=== PATIENT | female | born 1970 | race Caucasian/White ===

== ENCOUNTER → 2018-09-27 | Outpatient (CLI) | payer BC ==
--- NOTE | 2018-09-28 07:05 | US ---
EXAMINATION TYPE: US thyroid st tissue head/neck DATE OF EXAM: 09/27/2018 COMPARISON: NONE CLINICAL HISTORY: R22.1 Neck mass. mid neck fullness GLAND SIZE: Right Lobe: 4.5 x 1.8 x 2.0 cm Overall Parenchyma: homogenous Left Lobe: 4.9 x 1.7 x 2.2 cm Overall Parenchyma: homogeneous Isthmus Thickness: 0.8 cm NODULES RIGHT: # of nodules measured on right: 1 1. 0.8 X 0.5 x 0.5 cm mixed nodule at the mid pole with margins; . This nodule is wider than tall and shows no intranodular vascularity. Prior size: no prior LEFT: # of nodules measured on left: 1 1. 0.5 X 0.5 x 0.5 cm mixed nodule at the mid pole with well-defined margins; . This nodule is wid er than tall and shows intranodular vascularity. Prior size: no prior ISTHMUS: # of nodules measured in the isthmus: 1 1. 1.2 X 1.1 x 0.5 cm solid nodule at the mid pole with well-defined margins; . This nodule is wide r than tall and shows intranodular vascularity. Prior size: no prior Bilateral neck scanned, no evidence of lymphadenopathy. IMPRESSION: Nonspecific nodularity. The need to biopsy should be made on a clinical basis.
== END | disposition home or self-care (01) ==
LOC: RADUSWWP 16:42
PROVIDERS: ATTEND Family Medicine
DX: E04.2 Nontoxic multinodular goiter (principal)
CPT/HCPCS: 76536

== ENCOUNTER → 2018-10-25 | Outpatient (CLI) | payer BC ==
--- NOTE | 2018-10-25 09:21 | US ---
EXAMINATION TYPE: US liver DATE OF EXAM: 10/25/2018 COMPARISON: NONE CLINICAL HISTORY: R74.8 ABN LEVELS SERUM ENZYMES; takes medication for diabetes, HTN and diuresis EXAM MEASUREMENTS: Liver Length: 21.4 cm Gallbladder Wall: 0.2 cm CBD: 0.3 cm Right Kidney: 10.5 x x7.2 x 4.7 cm US exam is technically limited due to large body habitus. Pancreas: limitedly seen due to overlying bowel gas Liver: There is increased echogenicity of the hepatic parenchyma with diminished visualization of th e portal triads most commonly relating to hepatic steatosis and limiting evaluation for underlying he patic masses. Gallbladder: wnl Evidence for sonographic Stone's sign: no CBD: wnl Right Kidney: No hydronephrosis or masses seen IMPRESSION: Technically limited exam secondary to patient body habitus. 1. Sonographic findings most commonly related to hepatic steatosis, appearing moderate to severe. Cor relate with liver function test results. 2. Near-complete nonvisualization of the pancreas secondary to overlying bowel gas and patient body h abitus. 3. No sonographic evidence of cholelithiasis nor acute cholecystitis.
--- NOTE | 2018-10-29 08:33 | MM ---
Reason for exam: screening (asymptomatic). Last mammogram was performed 4 years and 1 month ago. History: Patient had first child at age 36. Family history of breast cancer in mother at age 68. Physical Findings: A clinical breast exam by your physician is recommended on an annual basis and results should be correlated with mammographic findings. MG 3D Screening Mammo W/Cad Bilateral CC and MLO view(s) were taken. Prior study comparison: September 12, 2014, mammogram. There are scattered fibroglandular densities. No significant changes when compared with prior studies. ASSESSMENT: Benign, BI-RAD 2 RECOMMENDATION: Routine screening mammogram of both breasts in 1 year.
== END | disposition home or self-care (01) ==
LOC: RADMAMWWP 06:54
PROVIDERS: ATTEND Family Medicine
DX: Z12.31 Encounter for screening mammogram for malignant neoplasm of breast (principal); R74.8 Abnormal levels of other serum enzymes; Z80.3 Family history of malignant neoplasm of breast
CPT/HCPCS: 76705; 77063; 77067

== ENCOUNTER 2019-02-27 15:57 | Observation (INO) | payer BC ==
[2019-02-27] MEDS ORDERED: VANCOMYCIN IV PER PHARMACY 1 EACH MISC MISCELLANE PRN (17:11)
[2019-02-27] MEDS ORDERED: SODIUM CHLORIDE 0.9% 1,000 ML IV STA (17:11)
--- NOTE | 2019-02-27 17:14 | ED ---
Extremity Problem HPI - General Chief complaint: Extremity Problem,Nontraumatic Stated complaint: bilat leg infection Time Seen by Provider: 02/27/19 16:14 Source: patient, RN notes reviewed, old records reviewed Mode of arrival: ambulatory Limitations: no limitations - History of Present Illness Initial comments: This is a 48-year-old female the ER today. She presents today with significant lower extremity edema bilateral lower extremity edema swelling and redness. I'll pain in both legs. Patient does her from diabetes. States he feels well for about 6 years for swelling goes the redness is been twice with recurrent bouts of infection. Patient was seen an outpatient facility yesterday was given ultrasound of both legs with no DVTs. Patient states his symptoms have not changed since, she states she's been placed on Bactrim with no help. MD Complaint: extremity pain, extremity swelling, other (Bilateral lower ex tremity edema 3+) -: days(s) Location: bilateral lower extremity History of Same: No Radiation: none Severity scale (1-10): 3 Quality: aching Consistency: constant Improves with: nothing Worsens with: weight bearing, walking - Related Data Home Medications Medication Instructions Recorded Confirmed Aspirin [Aspirin EC] 500 mg PO DAILY 02/27/19 02/27/19 Atorvastatin [Lipitor] 20 mg PO DAILY 02/27/19 02/27/19 Ergocalciferol [Vitamin D2] 50,000 unit PO GRIDER 02/27/19 02/27/19 Liraglutide [Victoza 2-Tonny] 1.8 mg SQ DAILY 02/27/19 02/27/19 Lisinopril-Hctz 10-12.5 mg 1 tab PO DAILY 02/27/19 02/27/19 [Zestoretic 10-12.5] Potassium 99 mg PO DAILY 02/27/19 02/27/19 Sulfamethox-Tmp 800-160Mg [Bactrim 1 tab PO BID 02/27/19 02/27/19 DS 800-160 mg] Allergies Allergy/AdvReac Type Severity Reaction Status Date / Time metformin AdvReac Nausea & Verified 02/27/19 16:55 Vomiting Review of Systems ROS Statement: Those systems with pertinent positive or pertinent negative responses have been documented in the HPI. ROS Other: All systems not noted in ROS Statement are negative. Past Medical History Additional Past Medical History / Comment(s): cellulitis History of Any Multi-Drug Resistant Organisms: None Reported Past Surgical History: No Surgical Hx Reported Additional Past Surgical History / Comment(s): Cyst off tailbone in 1991 Past Anesthesia/Blood Transfusion Reactions: No Reported Reaction Past Psychological History: No Psychological Hx Reported Smoking Status: Never smoker Past Alcohol Use History: None Reported Past Drug Use History: None Reported - Past Family History Father Family Medical History: Coronary Artery Disease (CAD), Diabetes Mellitus Additional Family Medical History / Comment(s): Several strokes, bypass surgery, and heart attack Mother Family Medical History: Diabetes Mellitus General Exam Limitations: no limitations General appearance: alert, in no apparent distress Head exam: Present: atraumatic, normocephalic, normal inspection Eye exam: Present: normal appearance, EOMI. Absent: scleral icterus, conjunc tival injection, periorbital swelling ENT exam: Present: normal exam, mucous membranes moist Neck exam: Present: normal inspection. Absent: tenderness, meningismus, lymphadenopathy Respiratory exam: Present: normal lung sounds bilaterally. Absent: respiratory distress, wheezes, rales, rhonchi, stridor Cardiovascular Exam: Present: regular rate, normal rhythm, normal heart sounds. Absent: systolic murmur, diastolic murmur, rubs, gallop, clicks GI/Abdominal exam: Present: soft, normal bowel sounds. Absent: distended, tenderness, guarding, rebound, rigid Extremities exam: Present: normal inspection, full ROM, normal capillary refill, other (Bilateral lower extremity edema, erythema from top of feet above-knee). Absent: tenderness, pedal edema, joint swelling, calf tenderness Back exam: Present: normal inspection Neurological exam: Present: alert, oriented X3, CN II-XII intact Psychiatric exam: Present: normal affect, normal mood Skin exam: Present: warm, dry, intact, normal color, erythema (Bilateral lower Shorty). Absent: rash Course Vital Signs 02/27/19 16:08 Temperature 97.7 F Pulse Rate 93 Respiratory 20 Rate Blood Pressure 145/75 O2 Sat by Pulse 97 Oximetry - Reevaluation(s) Reevaluation #1: 02/27/19 17:14 medical record is reviewed - Consultations Consultation #1: spoke w Dr Fraga for admission he is agreeable Medical Decision Making - Medical Decision Making 48 female the ER for evaluation bilateral lower extremity saline. Will be admitted for treatment of cellulitis, IV antibiotics - Lab Data Result diagrams: 02/27/19 17:37 02/27/19 17:37 Lab Results 02/27/19 02/27/19 02/27/19 Range/Units 17:37 17:37 17:37 WBC 9.0 (3.8-10.6) k/uL RBC 4.07 (3.80-5.40) m/uL Hgb 10.9 L (11.4-16.0) gm/dL Hct 35.9 (34.0-46.0) % MCV 88.3 (80.0-100.0) fL MCH 26.7 (25.0-35.0) pg MCHC 30.3 L (31.0-37.0) g/dL RDW 16.2 H (11.5-15.5) % Plt Count 279 (150-450) k/uL Neutrophils % 72 % Lymphocytes % 16 % Monocytes % 6 % Eosinophils % 3 % Basophils % 1 % Neutrophils # 6.4 (1.3-7.7) k/uL Lymphocytes # 1.4 (1.0-4.8) k/uL Monocytes # 0.5 (0-1.0) k/uL Eosinophils # 0.2 (0-0.7) k/uL Basophils # 0.1 (0-0.2) k/uL Hypochromasia Slight Anisocytosis Slight Sodium 137 (137-145) mmol/L Potassium 4.1 (3.5-5.1) mmol/L Chloride 99 (98-107) mmol/L Carbon Dioxide 32 H (22-30) mmol/L Anion Gap 6 mmol/L BUN 9 (7-17) mg/dL Creatinine 0.83 (0.52-1.04) mg/dL Est GFR (CKD-EPI)AfAm >90 (>60 ml/min/1.73 sqM) Est GFR (CKD-EPI)NonAf 84 (>60 ml/min/1.73 sqM) Glucose 146 H (74-99) mg/dL Calcium 8.9 (8.4-10.2) mg/dL Phosphorus 3.9 (2.5-4.5) mg/dL Magnesium 1.8 (1.6-2.3) mg/dL Total Bilirubin 0.2 (0.2-1.3) mg/dL AST 33 (14-36) U/L ALT 42 (9-52) U/L Alkaline Phosphatase 88 (38-126) U/L Troponin I (0.000-0.034) ng/mL NT-Pro-B Natriuret Pep 144 pg/mL Total Protein 6.1 L (6.3-8.2) g/dL Albumin 3.4 L (3.5-5.0) g/dL 02/27/19 Range/Units 17:37 WBC (3.8-10.6) k/uL RBC (3.80-5.40) m/uL Hgb (11.4-16.0) gm/dL Hct (34.0-46.0) % MCV (80.0-100.0) fL MCH (25.0-35.0) pg MCHC (31.0-37.0) g/dL RDW (11.5-15.5) % Plt Count (150-450) k/uL Neutrophils % % Lymphocytes % % Monocytes % % Eosinophils % % Basophils % % Neutrophils # (1.3-7.7) k/uL Lymphocytes # (1.0-4.8) k/uL Monocytes # (0-1.0) k/uL Eosinophils # (0-0.7) k/uL Basophils # (0-0.2) k/uL Hypochromasia Anisocytosis Sodium (137-145) mmol/L Potassium (3.5-5.1) mmol/L Chloride (98-107) mmol/L Carbon Dioxide (22-30) mmol/L Anion Gap mmol/L BUN (7-17) mg/dL Creatinine (0.52-1.04) mg/dL Est GFR (CKD-EPI)AfAm (>60 ml/min/1.73 sqM) Est GFR (CKD-EPI)NonAf (>60 ml/min/1.73 sqM) Glucose (74-99) mg/dL Calcium (8.4-10.2) mg/dL Phosphorus (2.5-4.5) mg/dL Magnesium (1.6-2.3) mg/dL Total Bilirubin (0.2-1.3) mg/dL AST (14-36) U/L ALT (9-52) U/L Alkaline Phosphatase (38-126) U/L Troponin I <0.012 (0.000-0.034) ng/mL NT-Pro-B Natriuret Pep pg/mL Total Protein (6.3-8.2) g/dL Albumin (3.5-5.0) g/dL Disposition Clinical Impression: Bilateral lower leg cellulitis Disposition: ADMITTED IP TO THIS HOSP Condition: Good Is patient prescribed a controlled substance at d/c from ED?: No Referrals: Israel Arzate MD [Primary Care Provider] - 1-2 days
[2019-02-27] MEDS ORDERED: VANCOMYCIN 2,500 MG in SODIUM CHLORIDE 0.9% 500 ML 500 ML IVPB STA (17:16)
[2019-02-27 17:57] LABS: Anisocytosis Slight; Basophils # (A) 0.1 k/uL (0-0.2); Basophils % (A) 1 %; Eosinophils # (A) 0.2 k/uL (0-0.7); Eosinophils % (A) 3 %; HCT 35.9 % (34.0-46.0); HGB 10.9 gm/dL (11.4-16.0); Hypochromasia Slight; Lymphocytes # (A) 1.4 k/uL (1.0-4.8); Lymphocytes % (A) 16 %; MCH 26.7 pg (25.0-35.0); MCHC 30.3 g/dL (31.0-37.0); MCV 88.3 fL (80.0-100.0); Mean Platelet Volume 7.1; Monocytes # (A) 0.5 k/uL (0-1.0); Monocytes % (A) 6 %; Neutrophils # (A) 6.4 k/uL (1.3-7.7); Neutrophils % (A) 72 %; Platelet Count 279 k/uL (150-450); RBC 4.07 m/uL (3.80-5.40); RDW 16.2 % (11.5-15.5)
[2019-02-27 18:00] LABS: ALT 42 U/L (9-52); AST 33 U/L (14-36); African American GFR (CKD) >90 (>60 ml/min/1.73 sqM); Albumin 3.4 g/dL (3.5-5.0); Alkaline Phosphatase 88 U/L (38-126); Anion Gap 6 mmol/L; Blood Urea Nitrogen 9 mg/dL (7-17); Calcium 8.9 mg/dL (8.4-10.2); Carbon Dioxide 32 mmol/L (22-30); Chloride 99 mmol/L (98-107); Glucose 146 mg/dL (74-99); Magnesium 1.8 mg/dL (1.6-2.3); Phosphorus 3.9 mg/dL (2.5-4.5); Potassium 4.1 mmol/L (3.5-5.1); Sodium 137 mmol/L (137-145); Total Bilirubin 0.2 mg/dL (0.2-1.3); Total Protein 6.1 g/dL (6.3-8.2)
[2019-02-27 23:11] VITALS: BMI 67.8
[2019-02-27] MEDS: ACETAMINOPHEN TAB 500 MG TAB PO PRN (23:50)
[2019-02-28 07:12] LABS: Glucose,Whole Blood 133 mg/dL (75-99)
[2019-02-28] MEDS: LISINOPRIL-HCTZ 10-12.5 MG 1 EACH TAB PO SCH (07:41)
[2019-02-28] MEDS: ATORVASTATIN 20 MG TAB PO SCH (07:41)
[2019-02-28] MEDS: INSULIN ASPART (NovoLOG) 100 UNIT/ML VIAL SQ SCH ×4 (07:42→21:13)
[2019-02-28] MEDS: ACETAMINOPHEN TAB 500 MG TAB PO PRN ×2 (07:48→17:50)
[2019-02-28] MEDS ORDERED: VANCOMYCIN 2,250 MG in SODIUM CHLORIDE 0.9% 500 ML 500 ML IVPB SCH (08:00)
[2019-02-28] MEDS ORDERED: NON FORMULARY DRUG (Potassium [Potassium] 99 MG) PO SCH (09:00)
[2019-02-28] MEDS ORDERED: Liraglutide [Victoza 2-Pak] 1.8 MG SQ SCH (09:00)
[2019-02-28 11:56] LABS: Glucose,Whole Blood 131 mg/dL (75-99)
[2019-02-28] MEDS: SILVER sulfADIAZINE Cream 400 GM 1 APPLIC APPLIC TOPICAL SCH (12:49)
[2019-02-28] MEDS: NYSTATIN 100,000 UNIT/GM POWD 15 GM TOPICAL SCH ×2 (12:50→23:23)
[2019-02-28 17:21] LABS: Glucose,Whole Blood 142 mg/dL (75-99)
[2019-02-28 20:05] LABS: Glucose,Whole Blood 170 mg/dL (75-99)
--- NOTE | 2019-02-28 20:15 | P.HPIM ---
History of Present Illness H&P Date: 02/28/19 Chief Complaint: Redness lower extremity History of presenting complaint: This is a pleasant 48-year-old patient of Dr. galaviz. Chronic stable medical conditions include diabetes mellitus type 2, hypertriglyceridemia, history of liposarcoma. Patient presents with both the lower extremity increasing redness from below the villanueva down to the foot with some pain and swelling. No fever and chills. Patient does have dry skin. Denies any injury. Patient started antiemetics in the ER including vancomycin and ceftriaxone. Laying in bed. Patient's had prior cellulitis about few years ago. In both lower extremity. Review of systems: GEN.: None EYES: None HEENT: None NECK: None RESPIRATORY: None CARDIOVASCULAR: None GASTROINTESTINAL: None GENITOURINARY: None MUSCULOSKELETAL: None LYMPHATICS: None HEMATOLOGICAL: None PSYCHIATRY: None NEUROLOGICAL: None. Past medical history to include: Diabetes mellitus type 2, hypertriglyceridemia. Lipo-sarcoma, cellulitis, Social history: Patient does smoke in the past. . Works as a quality specialist. Physical examination: VITAL SIGNS: 97.7, 93, 20, 145/75, 97% room air GENERAL: BMI is 67.9, laying in bed, not in distress. EYES: Pupils equal. Conjunctiva normal. HEENT: External appearance of nose and ears normal, oral cavity grossly normal. NECK: JVD not able to assess, masses not palpable. HEART: First and second heart sounds are normal; no edema. LUNGS: Respiratory rate normal; clear to auscultation. ABDOMEN: Soft, nontender, liver spleen not palpable, no masses palpable, slight redness in the groin area. PSYCH: Alert and oriented x3; mood and affect normal. NEUROLOGICAL: Cranial nerves grossly intact; no facial asymmetry, power and sensation grossly intact. LYMPHATICS: No lymph nodes palpable in the axilla and neck EXTREMITIES: Redness and tenderness from upper part of the villanueva down to the foot, with dry skin Assessment: -Bilateral lower extremity cellulitis, probably from leg swelling and micro- trauma from dry skin -Morbid obesity BMI 67.9 -Diabetes mellitus type 2 on oral hypoglycemic -Hypertriglyceridemia -Sabine infection of the intertriginous area of the groin area Plan: We will DC the vancomycin and ceftriaxone. Start the patient on clindamycin. We'll also put the patient on Silvadene cream with Kerlix and Yovani wrap of both the lower extremity. Home medications resumed. Lovenox for DVT prophylaxis. Care was discussed with the patient. Expect improvement in 24 hours. Past Medical History Past Medical History: Cancer, Diabetes Mellitus, Hyperlipidemia Additional Past Medical History / Comment(s): Cellulitis, Liposarcoma (October,) History of Any Multi-Drug Resistant Organisms: None Reported Past Surgical History: No Surgical Hx Reported Additional Past Surgical History / Comment(s): Cyst off tailbone in 1991 Past Anesthesia/Blood Transfusion Reactions: No Reported Reaction Past Psychological History: No Psychological Hx Reported Smoking Status: Former smoker Past Alcohol Use History: None Reported Past Drug Use History: None Reported - Past Family History Father Family Medical History: Coronary Artery Disease (CAD), Diabetes Mellitus Additional Family Medical History / Comment(s): Several strokes, bypass surgery, and heart attack Mother Family Medical History: Diabetes Mellitus Medications and Allergies Home Medications Medication Instructions Recorded Confirmed Type Aspirin [Aspirin EC] 500 mg PO DAILY 02/27/19 02/27/19 History Atorvastatin [Lipitor] 20 mg PO DAILY 02/27/19 02/27/19 History Ergocalciferol [Vitamin D2] 50,000 unit PO GRIDER 02/27/19 02/27/19 History Liraglutide [Victoza 2-Tonny] 1.8 mg SQ DAILY 02/27/19 02/27/19 History Lisinopril-Hctz 10-12.5 mg 1 tab PO DAILY 02/27/19 02/27/19 History [Zestoretic 10-12.5] Potassium 99 mg PO DAILY 02/27/19 02/27/19 History Sulfamethox-Tmp 800-160Mg [Bactrim 1 tab PO BID 02/27/19 02/27/19 History DS 800-160 mg] Allergies Allergy/AdvReac Type Severity Reaction Status Date / Time metformin AdvReac Nausea & Verified 02/27/19 16:55 Vomiting Physical Exam Vitals: Vital Signs Temp Pulse Pulse Resp BP BP Pulse Ox 02/28/19 05:00 97.5 F L 79 18 144/68 95 02/27/19 21:00 98.2 F 90 18 138/75 95 02/27/19 20:45 94 19 147/66 98 02/27/19 19:14 97.7 F 92 20 118/71 97 02/27/19 18:36 97.7 F 92 20 118/71 97 02/27/19 16:08 97.7 F 93 20 145/75 97 Intake and Output 02/27/19 02/28/19 02/28/19 22:59 06:59 14:59 Intake Total 300 Balance 300 Intake: Oral 300 Other: Voiding Method Toilet # Voids 1 Weight 168.283 kg Results CBC & Chem 7: 02/27/19 17:37 02/27/19 17:37 Labs: Abnormal Lab Results - Last 24 Hours (Table) 02/27/19 02/27/19 02/28/19 Range/Units 17:37 17:37 07:01 Hgb 10.9 L (11.4-16.0) gm/dL MCHC 30.3 L (31.0-37.0) g/dL RDW 16.2 H (11.5-15.5) % Carbon Dioxide 32 H (22-30) mmol/L Glucose 146 H (74-99) mg/dL POC Glucose (mg/dL) 133 H (75-99) mg/dL Total Protein 6.1 L (6.3-8.2) g/dL Albumin 3.4 L (3.5-5.0) g/dL Thrombosis Risk Factor Assmnt - Choose All That Apply Each Factor Represents 1 point: Age 41-60 years Thrombosis Risk Factor Assessment Total Risk Factor Score: 1 Thrombosis Risk Factor Assessment Level: Low Risk
[2019-02-28] MEDS ORDERED: ENOXAPARIN 40 MG/0.4 ML SYRINGE SQ SCH (21:00)
[2019-02-28] MEDS: CLINDAMYCIN 600 MG in DEXTROSE 5% IN WATER 50 ML IVPB SCH ×2 (21:13)
[2019-03-01] MEDS: ACETAMINOPHEN TAB 500 MG TAB PO PRN ×2 (01:56→07:47)
[2019-03-01] MEDS: CLINDAMYCIN 600 MG in DEXTROSE 5% IN WATER 50 ML IVPB SCH ×4 (03:08→07:44)
[2019-03-01 06:13] VITALS: BP 121/71; PULSE 87; RESP 20; TEMP 97.7
[2019-03-01 07:15] LABS: Glucose,Whole Blood 155 mg/dL (75-99)
[2019-03-01] MEDS: LISINOPRIL-HCTZ 10-12.5 MG 1 EACH TAB PO SCH (07:43)
[2019-03-01] MEDS: ATORVASTATIN 20 MG TAB PO SCH (07:43)
[2019-03-01] MEDS: INSULIN ASPART (NovoLOG) 100 UNIT/ML VIAL SQ SCH ×2 (07:43→12:19)
[2019-03-01 09:30] LABS: African American GFR (CKD) >90 (>60 ml/min/1.73 sqM)
[2019-03-01] MEDS: NYSTATIN 100,000 UNIT/GM POWD 15 GM TOPICAL SCH (10:25)
[2019-03-01] MEDS: SILVER sulfADIAZINE Cream 400 GM 1 APPLIC APPLIC TOPICAL SCH (10:25)
[2019-03-01 11:24] LABS: Glucose,Whole Blood 135 mg/dL (75-99)
--- NOTE | 2019-03-01 20:51 | P.DS ---
Providers Date of admission: 02/27/19 18:34 Expected date of discharge: 03/01/19 Attending physician: Terence Fraga Primary care physician: Israel Arzate [facility] Hospital Course: Chief Complaint: Redness lower extremity Hospital course: This is a pleasant 48-year-old patient of Dr. arzate. Chronic stable medical conditions include diabetes mellitus type 2, hypertriglyceridemia, history of liposarcoma. Patient presents with both the lower extremity increasing redness from below the villanueva down to the foot with some pain and swelling. No fever and chills. Patient does have dry skin. Denies any injury. Patient started antiemetics in the ER including vancomycin and ceftriaxone. Laying in bed. Patient's had prior cellulitis about few years ago. In both lower extremity. Admitted with bilateral lower external recent mellitus. [place] to be from infection from microtrauma from dry skin. Treated with clindamycin and topical Silvadene with Kerlix and Yovani wrap. Did much better with the time of discharge. Also treated for candidal infection of the contiguous areas of the core groin. They have discharge care was discussed in length the patient. Questions were answered. Told to keep the skin cream at least twice a day and keep it dry and wear stockings. Also advised to lose weight. Discussion and discharge planning more than 35 minutes Physical examination: VITAL SIGNS: 97.7, 87, 20, 121/71, 94% room air GENERAL: BMI is 67.9, laying in bed, comfortable. EYES: Pupils equal. Conjunctiva normal. HEENT: External appearance of nose and ears normal, oral cavity grossly normal. NECK: JVD not able to assess, masses not palpable. HEART: First and second heart sounds are normal; no edema. LUNGS: Respiratory rate normal; clear to auscultation. ABDOMEN: Soft, nontender, liver spleen not palpable, no masses palpable, slight redness in the groin area. PSYCH: Alert and oriented x3; mood and affect normal. EXTREMITIES: Redness and tenderness from upper part of the villanueva down to the foot, with dry skin, improved Discharge diagnosis: -Bilateral lower extremity cellulitis, probably from leg swelling and micro- trauma from dry skin -Morbid obesity BMI 67.9 -Diabetes mellitus type 2 on oral hypoglycemic -Hypertriglyceridemia -Sabine infection of the intertriginous area of the groin area Disposition: Home Patient Condition at Discharge: Stable Plan - Discharge Summary Discharge Rx Participant: No New Discharge Prescriptions: New Aspirin 81 mg PO DAILY #30 chewable Clindamycin [Cleocin] 450 mg PO Q6H #20 capsule Nystatin 100,000 Unit/gm Powd [Mycostatin Powder] 1 applic TOPICAL TID applic SILVER sulfADIAZINE Cream [Silvadene 1% Cream] 1 applic TOPICAL DAILY #1 applic Continue Liraglutide [Victoza 2-Tonny] 1.8 mg SQ DAILY Lisinopril-Hctz 10-12.5 mg [Zestoretic 10-12.5] 1 tab PO DAILY Ergocalciferol [Vitamin D2 (DRISDOL)] 50,000 unit PO GRIDER Atorvastatin [Lipitor] 20 mg PO DAILY Potassium 99 mg PO DAILY Discontinued Aspirin [Aspirin EC] 500 mg PO DAILY Sulfamethox-Tmp 800-160Mg [Bactrim DS 800-160 mg] 1 tab PO BID Discharge Medication List Atorvastatin [Lipitor] 20 mg PO DAILY 02/27/19 [History] Ergocalciferol [Vitamin D2 (DRISDOL)] 50,000 unit PO GRIDER 02/27/19 [History] Liraglutide [Victoza 2-Tonny] 1.8 mg SQ DAILY 02/27/19 [History] Lisinopril-Hctz 10-12.5 mg [Zestoretic 10-12.5] 1 tab PO DAILY 02/27/19 [History] Potassium 99 mg PO DAILY 02/27/19 [History] Aspirin 81 mg PO DAILY #30 chewable 03/01/19 [Rx] Clindamycin [Cleocin] 450 mg PO Q6H #20 capsule 03/01/19 [Rx] Nystatin 100,000 Unit/gm Powd [Mycostatin Powder] 1 applic TOPICAL TID applic 03/01/19 [Rx] SILVER sulfADIAZINE Cream [Silvadene 1% Cream] 1 applic TOPICAL DAILY #1 applic 03/01/19 [Rx] Follow up Appointment(s)/Referral(s): Israel Arzate MD [Primary Care Provider] - 03/04/19 2:20 pm Patient Instructions/Handouts: Cellulitis (DC) Discharge/Stand Alone Forms: Work/School Release / Restrict Discharge Disposition: HOME SELF-CARE
[2019-03-03] MEDS ORDERED: ERGOCALCIFEROL 50,000 UNIT CAP PO SCH (09:00)
== END 2019-03-01 14:19 | disposition home or self-care (01) ==
LOC: EC 15:57 → 4MS4W 18:34
PROVIDERS: ADMIT Hospitalist; ATTEND Hospitalist
DX: L03.115 Cellulitis of right lower limb (principal); L03.116 Cellulitis of left lower limb; E11.9 Type 2 diabetes mellitus without complications; E78.1 Pure hyperglyceridemia; C49.9 Malignant neoplasm of connective and soft tissue, unspecified; M79.89 Other specified soft tissue disorders; E66.01 Morbid (severe) obesity due to excess calories; Z68.44 Body mass index [BMI] 60.0-69.9, adult; B37.9 Candidiasis, unspecified; E78.5 Hyperlipidemia, unspecified; Z79.899 Other long term (current) drug therapy; Z79.82 Long term (current) use of aspirin; Z79.84 Long term (current) use of oral hypoglycemic drugs; Z87.891 Personal history of nicotine dependence; Z88.8 Allergy status to other drugs, medicaments and biological substances; Z83.3 Family history of diabetes mellitus; Z82.49 Family history of ischemic heart disease and other diseases of the circulatory system; Z82.3 Family history of stroke
CPT/HCPCS: 96366 ×3; 96367 ×3; 96372; 96365; 99285; 36415; 83880; 80053; 82565; 83735; 84100; 84484; 85025; 87040; G0378 ×3; J3370 ×2; J0696 ×2; J1650

== ENCOUNTER → 2022-11-09 | Outpatient (CLI) | payer OTHER ==
--- NOTE | 2022-11-09 15:14 | US ---
EXAMINATION TYPE: US mass soft tissue chest/back DATE OF EXAM: 11/09/2022 COMPARISON: NONE CLINICAL INDICATION: Female, 51 years old with history of R22.2 LOCALIZED SWELLING, MASS AND LUMP, TR UNK; Area of pain left mid back x 1 year Left mid back at patient's area of concern: appears wnl at this time IMPRESSION: 1. No discrete abnormality within the subcutaneous or deeper soft tissues within the [id number] at the area of concern in the patient's mid left back. The superficial portion of the paraspinal region s visualized appear normal.
== END | disposition home or self-care (01) ==
LOC: RADUSWWP 14:40
PROVIDERS: ATTEND Family Medicine
DX: R22.2 Localized swelling, mass and lump, trunk (principal)